=== PATIENT | male | born 1990 | race Caucasian/White ===

== ENCOUNTER 2025-06-09 12:49 | Emergency (ER) | payer MEDICAID, SELFPAY ==
--- NOTE | 2025-06-09 12:57 | EKG_ITS ---
[facility] Test Date: 2025-06-09 Pat Name: BARBARA HERNANDEZ Department: Room: - Gender: Male Records Clerk: : 1990 Requested By: Cal Brumfield Order Number: [id number] Reading MD: Cal Brumfield Measurements Intervals [place] Rate: 70 P: 55 MA: 165 QRS: 61 QRSD: 83 T: 57 QT: 355 QTc: 385 Interpretive Statements SINUS RHYTHM EARLY REPOLARIZATION [ST ELEVATION WITH NORMALLY INFLECTED T-WAVE] No previous ECG available for comparison /[id number]
[2025-06-09 13:45] VITALS: BP 137/85; PULSE 82; RESP 18; TEMP 37.1; O2SAT 99; BMI 22.4
--- NOTE | 2025-06-09 14:05 | PD.EDRME ---
Rapid Medical Screening Exam RME Arrival date/time: 06/09/25 12:49 Chief Complaint: Shortness of Breath/Dyspnea Vital signs: Vital Signs Temperature 98.7 F 06/09/25 13:45 Pulse Rate 82 06/09/25 13:45 Respiratory Rate 18 06/09/25 13:45 Blood Pressure 137/85 H 06/09/25 13:45 Pulse Oximetry (%) 99 06/09/25 13:45 Oxygen Delivery Method Room Air 06/09/25 13:45 Pulse ox 99% room air Vital signs reviewed by provider: Yes RME Narrative: 34-year-old male presents to the ED with complaint of shortness of breath as well as chest pain that began 3 days ago becoming progressively worse. Patient tells me upon ambulation his chest pain becomes worse the farther he ambulates. Also complains of pain to his back as well as GERD like symptoms to include belching. Exam: Heart regular rhythm and rate, lungs clear to auscultation, skin warm and dry. Radial pulse 2+, carotid pulse 2+, and the distal extremities are not edematous. Clinical Impression: Chest pain
--- NOTE | 2025-06-09 14:08 | EKG_ITS ---
[facility] Test Date: 2025-06-09 Pat Name: BARBARA HERNANDEZ Department: Room: - Gender: Male General Service Technician: : 1990 Requested By: Randolph Sullivan Order Number: [id number] Reading MD: Randolph Sullivan Measurements Intervals [place] Rate: 69 P: 56 [place]: 175 QRS: 54 QRSD: 79 T: 55 QT: 344 QTc: 370 Interpretive Statements SINUS RHYTHM EARLY REPOLARIZATION [ST ELEVATION WITH NORMALLY INFLECTED T-WAVE] No previous ECG available for comparison /[id number]
--- NOTE | 2025-06-09 14:08 | XR_ITS ---
EXAMINATION: PA lateral chest 2 views TECHNIQUE: Upright PA lateral chest 2 views Date and time: June 09, 2025, 1508 hours INDICATIONS: Chest pain shortness of breath beginning 3 days ago. FINDINGS: Normal heart size Minor blunting of the left posterior costophrenic angle Mild hyperexpansion No pneumonia or pulmonary edema IMPRESSION: Mild hyperexpansion
[2025-06-09 15:01] LABS: Basophils # (Auto) 0.0 Thou/mm3 (0.0-0.2); Basophils % (Auto) 1 % (0-2.5); Eosinophils # (Auto) 0.1 Thou/mm3 (0.0-0.5); Eosinophils % (Auto) 3 % (0-10); Hematocrit 44.5 % (41.0-53.0); Hemoglobin 15.5 g/dL (13.5-16.0); Immature Granulocytes Auto 0.01 Thou/mm3 (0.00-0.00); Lymphocytes # (Auto) 0.8 Thou/mm3 (1.0-4.8); Lymphocytes % (Auto) 19 % (10-50); Mean Corpuscular HGB Conc 34.8 g/dl (31.0-37.0); Mean Corpuscular Hemoglobin 32.0 pg (25.0-35.0); Mean Corpuscular Volume 92 fL (80-100); Monocytes # (Auto) 0.7 Thou/mm3 (0.0-0.8); Monocytes % (Auto) 16 % (0-12); Neutrophils # (Auto) 2.6 Thou/mm3 (1.8-7.7); Neutrophils % (Auto) 62 % (37-80); Nucleated Red Blood Cell # 0.00 Thou/mm3 (0.00-0.00); Nucleated Red Blood Cell % 0 /100 WBC (0); Platelet Count 112 Thou/mm3 (140-440); RDW Standard Deviation 38.2 fL (35.1-43.9); Red Blood Count 4.85 Miln/mm3 (4.50-5.90); White Blood Count 4.2 Thou/mm3 (3.8-10.6)
[2025-06-09 15:12] LABS: Collection Type, Urine Clean Catch
[2025-06-09 15:12] LABS: INR 1.2 (0.9-1.3); Partial Thromboplastin Time 28.2 Seconds (22.0-36.0); Prothrombin Time 12.4 Seconds (9.0-12.2)
[2025-06-09 15:16] LABS: B-Type Natriuretic Peptide < 20 pg/mL (0-100)
[2025-06-09 15:19] LABS: Alanine Aminotransferase 136 U/L (10-49); Albumin, Serum 5.1 gm/dL (3.5-5.0); Albumin/Globulin Ratio 2.0 (1.2-2.2); Alkaline Phosphatase 58 U/L (46-116); Anion Gap 12 (7-16); Aspartate Amino Transferase 157 U/L (0-34); BUN/Creatinine Ratio 7 Ratio (12-20); Bilirubin,Total 6.0 mg/dL (0.3-1.2); Blood Urea Nitrogen 6 mg/dL (9-23); Calcium 10.1 mg/dL (8.3-10.6); Calcium (Corrected) 10.1 mg/dL (8.5-10.1); Carbon Dioxide 29.1 mMol/L (20.0-31.0); Chloride 96 mMol/L (98-107); Creatinine (Component) 0.9 mg/dL (0.6-1.3); Estimated Creatinine Clearance 118.3 mL/min (>60); Globulin 2.5 gm/dL (2.3-3.5); Glucose 86 mg/dL (74-106); LDH (Lactate Dehydrogenase) 257 U/L (120-246); Magnesium 1.6 mg/dL (1.6-2.6); Osmolality,Calculated 270 (275-295); Potassium 4.1 mMol/L (3.4-5.1); Sodium 137 mMol/L (136-145); Total Protein 7.6 gm/dL (5.7-8.2); Troponin I < 0.002 ng/mL (0.0-0.045); eGFR > 60 See Note
[2025-06-09 15:37] LABS: Bacteria,Urine Rare; Bilirubin,Urine Negative (Negative); Blood,Urine Negative (Negative); Clarity,Urine Clear (Clear/Hazy); Culture Indicated,Urine Not Indicated; Glucose, Urine Negative (Negative); Ketones,Urine 2+ (Negative); Leukocyte Esterase,Urine Negative (Negative); Nitrite,Urine Negative (Negative); PH,Urine 8.5 (5.0-7.0); Protein,Urine 1+ (Neg - Trace); RBC,Urine 2 /hpf (0-3); Specific Gravity,Urine 1.020 (1.001-1.035); Squamous Epithelial Cell,Urine < 1 /hpf (0-5); Urobilinogen,Urine Negative mg/dL (0.0-1.0); WBC,Urine < 1 /hpf (0-5)
[2025-06-09 15:40] LABS: Amphetamine/Methamp Scrn,U Negative (Negative); Barbiturate Screen,Urine Negative (Negative); Benzodiazepines Screen,Urine Negative (Negative); Benzoylecgonine Screen, Ur Negative (Negative); Fentanyl Screen,Urine Negative (Negative); Opiate Screen,Urine Negative (Negative); THC Screen,Urine Positive (Negative)
[2025-06-09 15:48] LABS: Color,Urine Lt-Yellow (Lt Yel-Yel)
--- NOTE | 2025-06-09 18:26 | EDNOTE_ITS ---
ED Chest Pain RME/HPI General Chief Complaint: Shortness of Breath/Dyspnea Stated Complaint: SOB, Chest burning X 3 days Time Seen by Provider: 06/09/25 15:06 Arrival date/time: 06/09/25 12:49 RME / HPI RME / HPI narrative: 34-year-old male presents to the ED with complaint of shortness of breath as well as chest pain that began 3 days ago becoming progressively worse. Patient tells me upon ambulation his chest pain becomes worse the farther he ambulates. Also complains of pain to his back as well as GERD like symptoms to include belching. See [facility] for Dr. Gaxiola's HPI Documentation. Exam: Heart regular rhythm and rate, lungs clear to auscultation, skin warm and dry. Radial pulse 2+, carotid pulse 2+, and the distal extremities are not edematous. Impression: Chest pain Related Data Previous Rx's ?Medication ?Instructions ?Recorded acetaminophen 300 mg-codeine 30 mg 2 tab PO Q8H PRN pa in #10 tabs 06/09/25 tablet Allergies Allergy/AdvReac Type Severity Reaction Status Date / Time No Known Drug Allergies Allergy Verified 06/09/25 12:55 Review of Systems Review of Systems Systems Reviewed: All systems reviewed, normal except as documented Past Medical History Social History SMOKING STATUS: Current some day smoker ED Exam Narrative Physical exam: See [facility] for Dr. Gaxiola's Physical Exam Documentation. Course Quality Measures none Orders Category Date Time Status EKG (ED ONLY) *Do not use* NOW Care 06/09/25 12:57 Completed EKG (ED ONLY) *Do not use* NOW Care 06/09/25 14:08 Completed EKG (ED Only) Stat Exams 06/09/25 12:57 Draft EKG (ED Only) Stat Exams 06/09/25 14:08 Draft XR chest 2V Stat Exams 06/09/25 14:08 Completed B-Type Natriuretic Peptide Stat Lab 06/09/25 14:47 Completed CBC Stat Lab 06/09/25 14:47 Completed Comprehensive Metabolic Panel Stat Lab 06/09/25 14:47 Completed Drug Screen,Urine Stat Lab 06/09/25 15:04 Completed LDH (Lactate Dehydrogenase) Stat Lab 06/09/25 14:47 Completed Magnesium Stat Lab 06/09/25 14:47 Completed Partial Thromboplastin Time Stat Lab 06/09/25 14:47 Completed Prothrombin Time with INR Stat Lab 06/09/25 14:47 Completed Troponin I Stat Lab 06/09/25 14:47 Completed Urinalysis, C/S if Indicated Stat Lab 06/09/25 15:04 Completed Vital Signs Vital signs: Vital Signs Temperature 98.7 F 06/09/25 13:45 Pulse Rate 82 06/09/25 13:45 Respiratory Rate 18 06/09/25 13:45 Blood Pressure 137/85 H 06/09/25 13:45 Pulse Oximetry (%) 99 06/09/25 13:45 Oxygen Delivery Method Room Air 06/09/25 13:45 Chest Pain MDM Narrative MDM Narrative:: This section includes all my notes and documentations, including HPI, PE, and ED course. Abilio Gaxiola MD HPI: 34 y/o male presents with several days of chest pain anteriorly. Seems to be worse with certain movement. No shortness of breath. No fever or cough. No palpitations. No unusual fatigue or malaise. No other complaints. ROS: All negative except as documented in HPI. Physical Exam: General: Alert and oriented. No acute distress when remaining still. Eyes: Conjunctivae and lids clear. ENT: No nasal congestion. Neck: Supple. Heart: RRR. Chest: Palpation anteriorly reproduces his pain. Lungs: No respiratory distress. Good air movement. No rhonchi, wheezing, rales. Abdomen: Soft and nontender. Skin: Warm and dry. Neuro: Alert and oriented X 3. I reviewed all diagnostic test results: My interpretation of the EKG: NSR (70 bpm) with no ST-T changes. My interpretation of the chest x-ray is NAD. Blood tests and urine tests unremarkable. At this point, diagnoses include: Chest Wall Pain Recommended more outpatient cardiac workup. Based on my best medical judgment, made decision no further evaluation or treatment indicated at this time. Patient understands and agrees to the discharge instructions customized and printed, see below. Discharge instructions from Dr. Gaxiola: 1. After extensive evaluation, there is no life-threatening condition.? Such as heart attack or pulmonary embolism (blood clots in your lungs) or pneumothorax (collapsed lung). 2. Your pain is originating from the chest wall and not from an internal organ.? The chest wall has many joints and muscles between the ribs, so sprains and strains are common.?? 3. Apply ice or heat if helpful.? Tylenol/ibuprofen as needed. Tylenol with codeine for severe pain. 4. See a private doctor on 06/10/2025 for recheck and second opinion. To make sure there is no serious underlying heart condition, ask to help you get more tests for your heart that cannot be done here in the ER.? Such as Holter Monitor (cardiac monitoring at home from a day to even a month), heart stress test (on treadmill or with medication), echocardiogram (imaging of your heart structures), heart catherization (checking for blockages in your heart arteries) , and a referral to see a Marine Service Operator.? 5. Seek immediate medical care with worsening or with any concerns.?? Abilio Gaxiola MD Patient data External records reviewed:: [facility] previous records (No prior ED records available for review) Clinical information provided by:: patient Social determinants that could affect healthcare access:: other (specify) (Tobacco use) Patient has the following chronic illnesses:: None reported How is presenting disease/condition affected by chronic disease/condition?: no chronic disease Evaluation data The following diagnostics were reviewed and interpreted by me:: lab results, radiology exam(s) and EKG tracing(s) (My interpretation of the EKG: NSR (70 bpm) with no ST-T changes. Abilio Gaxiola MD) Lab and/or radiology exams considered but not ordered:: None Interpretation Summary: I reviewed all diagnostic test results: My interpretation of the EKG: NSR (70 bpm) with no ST-T changes. My interpretation of the chest x-ray is NAD. Blood tests and urine tests unremarkable. Medications / Prescriptions Medications or Prescriptions considered but not ordered:: None Medication administrations:: None Consultations Consultation(s) initiated? (list below): No Diagnosis Chest Pain Differential Diagnosis: stable angina, unstable angina pectoris, atypical chest pain, st elevation myocardial infarction, costochondritis and chest pain Most likely diagnosis given after review of the tests above:: Chest Wall Pain Admission Indicated Admission indicated?: not indicated Explain why admission is indicated or not indicated:: With no condition needing emergent intervention, there was no indication for admission. Admission Request Was there a request for admission?: No Disposition Plan Disposition Plan: Discharge Discharge Attestation Discharge Attestation: The patient and all family members were given an opportunity to ask questions and understood the discharge instructions. Discharge instructions specifically effects, indications for sooner follow up or return to the emergency department, and the expected course of current diagnosis. Patient condition: Stable Discharge Plan Plan Patient Disposition: HOME (Self Care) Prescriptions/Referrals Prescriptions/Med Rec: New acetaminophen-codeine 300-30 mg tablet 2 tab PO Q8H MDD 6 PRN (Reason: pain) Qty: 10 0RF Referrals: No Primary/Family,Physician [Primary Care Provider] - In 1 week Problem List Clinical Impression: Chest wall pain Patient/Caregiver Discharge Instructions Discharge Activity: activity as tolerated Education Materials: ED Chest Pain, Uncertain Cause, ED Chest Wall Strain (Child) Additional Instructions: Discharge instructions from Dr. Gaxiola: 1. After extensive evaluation, there is no life-threatening condition.? Such as heart attack or pulmonary embolism (blood clots in your lungs) or pneumothorax (collapsed lung). 2. Your pain is originating from the chest wall and not from an internal organ.? The chest wall has many joints and muscles between the ribs, so sprains and strains are common.?? 3. Apply ice or heat if helpful.? Tylenol/ibuprofen as needed. Tylenol with codeine for severe pain. 4. See a private doctor on 06/10/2025 for recheck and second opinion. To make sure there is no serious underlying heart condition, ask to help you get more tests for your heart that cannot be done here in the ER.? Such as Holter Monitor (cardiac monitoring at home from a day to even a month), heart stress test (on treadmill or with medication), echocardiogram (imaging of your heart structures), heart catherization (checking for blockages in your heart arteries), and a referral to see a Marine Service Operator.? 5. Seek immediate medical care with worsening or with any concerns.?? Print Language: Surinamese Stand Alone Forms: Brynn Award Info., Patient Portal Info Letter
== END 2025-06-09 18:50 | disposition home or self-care (01) ==
PROVIDERS: Physician Assistant; Emergency Provider Emergency Medicine
DX: R07.89 Other chest pain (principal); R06.02 Shortness of breath
CPT/HCPCS: 36415; 71046; 80053; 80307; 81001; 83615; 83735; 83880; 84484; 85025; 85610; 85730; 93005; 99283